=== PATIENT | male | born 1995 | race Caucasian/White ===

== ENCOUNTER 2016-06-09 16:21 | Emergency (ER) | payer BC ==
[~2016-06-09] VITALS: Ht 195.6 cm; Wt 137.9 kg
[~2016-06-09 16:21] MED LIST: CLEOCIN150 MG PO; TRAMADOL HCL50 MG PO
[2016-06-09] MEDS ORDERED: PEN-VEE K,VEET500 MG PO (17:31)
[2016-06-09] MEDS ORDERED: MOTRIN600 MG PO (17:32)
[2016-06-09] MEDS ORDERED: ROXICODONE5 MG PO (17:32)
[2016-06-09 17:43] VITALS: BP 141/89
== END 2016-06-09 17:43 | disposition home or self-care (01) ==
LOC: EME 16:21
DX: K08.89 Other specified disorders of teeth and supporting structures (principal); Z72.0 Tobacco use
CPT/HCPCS: 99281; 99283